=== PATIENT | female | born 1980 | race African-American/Black ===

== ENCOUNTER 2024-06-17 10:00 | Emergency (ER) | payer MEDICAID ==
[~2024-06-17] VITALS: Ht 160 cm; Wt 54.5 kg
[~2024-06-17 10:00] MED LIST: ATIVAN; SEROQUEL
[2024-06-17] MEDS: ONDANSETRON HCL 4 MG/2 ML VIAL IV ONE (10:29)
[2024-06-17] MEDS: SODIUM CHLORIDE 0.9% 1,000 ML IVB ONE (10:49)
[2024-06-17 11:03] LABS: Basophils # (auto) 0 10 ^3/uL (0-0.2); Basophils % (auto) 0.5 % (0.0-2.0); Eosinophils # (auto) 0 10 ^3/uL (0-0.8); Hemoglobin 8.9 g/dL (12.2-16.2); Lymphocytes # (auto) 0.9 10 ^3/uL (0.4-5.4); Lymphocytes % (auto) 17.9 % (10.0-50.0); Mean Corpuscular Hemoglobin 24.5 pg (28.0-32.0); Mean Corpuscular Hgb Conc. 32.9 g/dL (32.0-36.0); Mean Corpuscular Volume 74.2 fL (80.0-100.0); Monocytes # (auto) 0.2 10 ^3/uL (0-1.3); Neutrophils # (auto) 4.1 10 ^3/uL (1.6-8.6); Neutrophils % (auto) 77.6 % (37.0-80.0); Nucleated Red Blood Cells % 0.1 %; Red Blood Cells 3.64 10^6/uL (4.0-5.20); White Blood Cell 5.3 10^3/uL (4.4-10.8)
[2024-06-17 11:04] LABS: Red Cell Distribution Width 20.3 % (11.8-14.3)
[2024-06-17 11:10] VITALS: TEMP 97.3
[2024-06-17] MEDS: MORPHINE SULFATE 4 MG/ML SYR/VIAL IV ONE (11:18)
[2024-06-17] MEDS: PANTOPRAZOLE 40 MG/10 ML VIAL INJ IV ONE (11:18)
[2024-06-17] MEDS: LORazepam 2MG/ML-1ML VIAL IV ONE (11:18)
[2024-06-17 11:20] LABS: Alanine Aminotransferase 10 U/L (7-40); Alkaline Phosphatase 57 U/L (46-116); Anion Gap 11 (5-15); Aspartate Aminotransferase 17 U/L (13-40); BUN/Creatinine Ratio 7.9 (10.0-20.0); Blood Urea Nitrogen 6 mg/dL (9-23); Calcium 8.3 mg/dL (8.7-10.4); Carbon Dioxide 19 mmol/L (20-30); Chloride 111 mmol/L (98-107); Glucose 142 mg/dL (74-106); Potassium 3.4 mmol/L (3.5-5.1); Sodium 141 mmol/L (136-145)
[2024-06-17 11:21] LABS: Albumin 3.9 g/dL (3.2-4.8); Bilirubin, Total 0.3 mg/dL (0.2-1.0)
[2024-06-17 11:24] VITALS: PULSE 78; RESP 22; O2SAT 100
[2024-06-17 11:29] LABS: Lipase 31 U/L (12-53)
[2024-06-17] MEDS ORDERED: ZOFR4T PO (11:47)
[2024-06-17] MEDS ORDERED: PANT40TA2 PO (11:47)
[2024-06-17 12:00] VITALS: BP 133/76; PULSE 84; RESP 17; O2SAT 100
== END 2024-06-17 11:49 | disposition home or self-care (01) ==
LOC: ER 10:00 → EDBD 10:00 → ER 11:49
DX: F12.90 Cannabis use, unspecified, uncomplicated (principal); R10.13 Epigastric pain; R11.2 Nausea with vomiting, unspecified; R19.7 Diarrhea, unspecified; F41.9 Anxiety disorder, unspecified; F15.90 Other stimulant use, unspecified, uncomplicated; Z86.2 Personal history of diseases of the blood and blood-forming organs and certain disorders involving the immune mechanism; Z88.8 Allergy status to other drugs, medicaments and biological substances; Z79.899 Other long term (current) drug therapy
CPT/HCPCS: 36415; 80053; 83690; 85025; 96361; 96374; 96375; 99284; J2060; J2270; J2405; J2470; J7030

== ENCOUNTER 2025-01-02 10:05 | Inpatient (IN) | payer MEDICAID ==
[~2025-01-02] VITALS: Ht 162.6 cm; Wt 49.6 kg
[~2025-01-02 10:05] MED LIST changes: +PANT40TA2 PO; +ZOFR4T PO
--- NOTE | 2025-01-02 11:10 | ED.PDOC ---
GI ASSESSMENT HPI Comments 44 year old female brought in by EMS presents to the ED with a chief complaint of abdominal pain onset today (01/02/2025). Patient states she began experiencing abdominal pain, rates 8/10 as well as nausea, vomiting, headache, sweats. Patient states last time she smoked marihuana was yesterday, 01/01/2025/. PMHx of anemia, anxiety. Denies shortness of breath, chest pain, dizziness, blurry vision, dysuria, hematuria. No other symptoms or modifying factors present at this time. Chief Complaint: Abdominal Pain Time Seen by MD: 10:59 Primary Care Provider: UNKNOWN NAME Allergies: Coded Allergies: Metoclopramide (Verified Allergy, Severe, ANXIETY, 05/03/11) Hydromorphone (Verified Allergy, Mild, 06/12/11) Home Meds Active Scripts Ondansetron Odt 4MG Tab (ZOFRAN PO) 4 Mg Tb, 4 MG PO Q8HP PRN for 5 Days, #15 TAB ODT TAB-DISSOLVE IN MOUTH, THEN SWALLOW Prov:MONICO CASTRO MD 06/17/24 Pantoprazole Sodium Sesquihydr (Protonix) 40 Mg Tab, 40 MG PO DAILY, #30 TAB Prov:MONICO CASTRO MD 06/17/24 Reported Medications [Seroquel] No Conflict Check, HS 05/03/11 [Ativan] No Conflict Check 05/03/11 Information Source: Patient, Emergency Med Personnel Mode of Arrival: EMS Timing: Hours Duration: Since onset Prehospital treatment: None Quality: Burning, Sharp Severity: Moderate Recent: None Recent Hx of: None Pain Location: Diffuse Modifying Factors: Nothing Associated sign and symptoms: Nausea, Vomiting, Abdominal Pain Past Medical History PAST MEDICAL HISTORY: Anemia, Anxiety Surgical History: Denies all surgeries INFORMATION SYSTEMS PROJECT MANAGER History: Denies all INFORMATION SYSTEMS PROJECT MANAGER Hx Family History Family History: Reviewed,noncontributory to illness, No family hx of DM, No family hx of Heart coy, No family hx of HTN, No family hx of Stroke Social History Smoker: Non-Smoker Alcohol: Denies ETOH Use Drugs: Marijuana Lives In: Home Constitutional: reports: sweats; denies: chills, diaphoresis, fatigue, fever, malaise, weakness, others EENTM: denies: blurred vision, double vision, ear bleeding, ear discharge, ear drainage, ear pain, ear ringing, eye pain, eye redness, hearing loss, mouth pain, mouth swelling, nasal discharge, nose bleeding, nose congestion, nose pain, photophobia, tearing, throat pain, throat swelling, voice changes, others Respiratory: denies: cough, hemoptysis, orthopnea, SOB at rest, shortness of breath, SOB with excertion, stridor, wheezing, others Cardiovascular: denies: chest pain, dizzy spells, diaphoresis, Dyspnea on exertion, edema, irregular heart beat, left arm pain, lightheadedness, palpitations, PND, syncope, others Gastrointestinal: reports: abdominal pain, nausea, vomiting; denies: abdomen distended, blood streaked bowels, constipated, diarrhea, dysphagia, difficulty swallowing, hematemesis, melena, poor appetite, poor fluid intake, rectal bleeding, rectal pain, others Genitourinary: denies: abnormal vagina bleeding, burning, dyspareunia, dysuria, flank pain, frequency, hematuria, incontinence, pain, , vagina discharge, urgency, others Neurological: reports: headache; denies: dizziness, fainting, left sided numbness, left sided weakness, numbness, paresthesia, pre-existing deficit, right sided numbness, right sided weakness, seizure, speech problems, tingling, tremors, weakness, others Musculoskeletal: denies: back pain, gout, joint pain, joint swelling, muscle pain, muscle stiffness, neck pain, others Integumetry: denies: bruises, change in color, change in hair/nails, dryness, laceration, lesions, lumps, rash, wounds, others Allergic/Immunocompromised: denies: Difficulty Healing, Frequent Infections, Hives, Itching, others Endocrine: denies: excessive hunger, excessive sweating, excessive thirst, excessive urination, flushing, intolerance to cold, intolerance to heat, unexplained weight gain, unexplained weight loss, others Psychiatric: denies: anxiety, bipolar disorder, depression, hopeless, panic disorder, schizophrenia, sleepless, suicidal, others All Other Systems: Reviewed and Negative Physical Exam General Appearance: Moderate Distress, Normal, Other (Restless anxious with the nausea vomiting and abdominal pain) HEENT: Normal ENT Inspection, PERRL/EOMI, Pharynx Normal, TMs Normal Neck: Full Range of Motion, Non-Tender, Normal, Normal Inspection Respiratory: Chest Non-Tender, Lungs Clear, No Accessory Muscle Use, No Respiratory Distress, Normal Breath Sounds Cardiovascular: No Edema, No JVD, No Murmur, No Gallop, Normal Peripheral Pulses, Regular Rate/Rhythm Breast Exam: Deferred Gastrointestinal: Diffuse, No Organomegaly, No Pulsatile Mass, Normal Bowel Sounds, Soft, Tenderness Genitalia: Deferred Pelvic: Deferred Rectal: Deferred Extremities: No calf tenderness, Normal capillary refill, Normal inspection, Normal range of motion, Non-tender, No pedal edema Musculoskeletal : Apperance: Normal Neurologic: Alert, performance test consultant II-XII nml as Tested, No Motor Deficits, Normal Affect, Normal Mood, No Sensory Deficits Cerebellar Function: Normal Reflexes: Normal Skin: Dry, Normal Color, Warm Peripheral Pulses: 1+ carotid (R), 1+ carotid (L) Lymphatic: No Adenopathy Was a procedure done? Was a procedure done?: No GI differential Dx Differential Diagnosis: Gastritis/PUD, Gastroenteritis, Inflammatory BD, Pancreatitis, UTI, Dehydration, Diabetes/ DKA, Drug toxicity, Electrolyte Imbalance, Food Poisoning, , Hypovolemia, Renal Failure, Anemia X-Ray, Labs, Meds, VS Vital Signs Date Time Temp Pulse Resp B/P (MAP) Pulse Ox O2 Delivery O2 Flow Rate FiO2 01/02/25 12:13 78 20 156/88 (110) 100 01/02/25 12:11 130/80 01/02/25 11:35 80 18 130/80 01/02/25 11:18 130/80 01/02/25 11:17 88 18 130/90 01/02/25 11:12 97.6 76 16 169/86 (113) 100 97.6 01/02/25 10:11 97.6 84 22 183/146 (158) 98 Lab Test 01/02/25 13:22 01/02/25 11:05 Range/Units White Blood Count 6.3 4.4-10.8 10^3/uL Red Blood Count 3.86 L 4.0-5.20 10^6/uL Hemoglobin 8.0 L 12.2-16.2 g/dL Hematocrit 25.9 L 36.0-46.0 % Mean Corpuscular Volume 67.1 L 80.0-100.0 fL Mean Corpuscular Hemoglobin 20.8 L 28.0-32.0 pg Mean Corpuscular Hemoglobin Concent 31.0 L 32.0-36.0 g/dL Red Cell Distribution Width 18.2 H 11.8-14.3 % Platelet Count 285 140-450 10^3/uL Mean Platelet Volume 7.6 6.9-10.8 fL Neutrophils (%) (Auto) 37.0-80.0 % Lymphocytes (%) (Auto) 10.0-50.0 % Monocytes (%) (Auto) 0.0-12.0 % Basophils (%) (Auto) 0.0-2.0 % Neutrophils # (Auto) 1.6-8.6 10 ^3/uL Lymphocytes # (Auto) 0.4-5.4 10 ^3/uL Monocytes # (Auto) 0-1.3 10 ^3/uL Differential Total Cells Counted 100.0 100 Neutrophils % (Manual) 77 37.0-80.0 Band Neutrophils % (Manual) 0 Lymphocytes % (Manual) 20 10.0-50.0 Monocytes % (Manual) 3 0-12 Eosinophils % (Manual) 0 0-7 Basophils % (Manual) 0 0.0-2.0 Metamyelocytes % (manual) 0 Myelocytes % (Manual) 0 Promyelocytes % (Manual) 0 Blast Cells % (Manual) 0 Reactive Lymphocytes 0 Platelet Estimate Adequate Hypochromasia (manual) Moderate Anisocytosis (manual) Slight Microcytosis Moderate Sickle Cells Target Cells Few Ovalocytes Few Carmen Cells Few Sodium Level 139 136-145 mmol/L Potassium Level 4.0 3.5-5.1 mmol/L Chloride Level 110 H 98-107 mmol/L Carbon Dioxide Level 21 20-31 mmol/L Anion Gap 8 5-15 Blood Urea Nitrogen 6 L 9-23 mg/dL Creatinine 0.63 0.550-1.02 mg/dL Glomerular Filtration Rate Calc 112 >90 mL/min BUN/Creatinine Ratio 9.5 L 10.0-20.0 Serum Glucose 122 H 74-106 mg/dL Calcium Level 9.3 8.7-10.4 mg/dL Magnesium Level 1.7 1.6-2.6 mg/dL Lipase 30 12-53 U/L Beta HCG, Quantitative < 1.5 L 1.5-4.2 mIU/mL Urine Color Straw Yellow Urine Clarity Cloudy Clear Urine pH 7.5 5.0-9.0 Urine Specific [place] 1.019 1.001-1.035 Urine Protein Negative Negative Urine Ketones Negative Negative Urine Blood Negative Negative /uL Urine Nitrite Negative Negative Urine Bilirubin Negative Negative Urine Urobilinogen Normal Negative mg/dL Urine Leukocyte Esterase Negative Negative /uL Urine RBC 1 0 - 4 /hpf Urine Microscopic WBC 2 0-5 /HPF Urine Squamous Epithelial Cells Few <5 /hpf Urine Bacteria Few H None Seen /hpf Urine Mucus Few None Seen Urine Glucose Normal Normal mg/dL Current Medications Medications (Trade) Dose Ordered Sig/Roger Route Start Time Stop Time Status Last Admin Ondansetron HCl (Zofran) 8 mg ONCE ONCE IV 01/02/25 11:15 01/02/25 11:16 DC 01/02/25 11:16 Sodium Chloride 1,000 ml @ 1,000 mls/hr Q1H ONCE IVB 01/02/25 11:15 01/02/25 12:14 DC 01/02/25 11:18 Morphine Sulfate 2 mg ONCE ONCE IV 01/02/25 11:15 01/02/25 11:16 DC 01/02/25 11:17 Clonidine HCl (Catapres Tablet) 0.2 mg ONCE ONCE PO 01/02/25 11:15 01/02/25 11:16 DC 01/02/25 11:18 Al Hydrox/Mg Hydrox/Simethicone (Maalox Plus) 30 ml ONCE ONCE PO 01/02/25 11:30 01/02/25 11:31 DC 01/02/25 11:31 Belladonna Alkaloids/ Phenobarbital ( Elixir) 5 ml ONCE ONCE PO 01/02/25 11:30 01/02/25 11:31 DC 01/02/25 11:31 Lidocaine HCl (Xylocaine 2% Viscous) 15 ml ONCE ONCE PO 01/02/25 11:30 01/02/25 11:31 DC 01/02/25 11:31 Ondansetron HCl (Zofran) 4 mg ONCE ONCE IV 01/02/25 13:30 01/02/25 13:31 DC 01/02/25 13:56 X-Ray, Labs, Meds, VS Comment course in the emergency department eventful patient came in complaining of severe abdominal pain nausea vomiting and some headache but mostly the abdomen is painful and she has restless blood pressure also is 183/146 CBC 6300 with 77% neutrophils H&H 8.0 and 259 with microcytosis Urine negative BNP negative Magnesium 1.7 Lipase 30 and beta hCG less than 1.5 Patient has been hydrated and medicated re-evaluation patient is not feeling well and will be admitted for further care Time of 1ST Reevaluation: 11:29 Reevaluation 1ST: Unchanged Patient Education/Counseling: Diagnosis, Treatment, Prognosis Family Education/Counseling: No Family Present Additional Information - The following tests were ordered, and results were reviewed by me: CBC, BETA HCG, LIPASE, UA, MAGNESIUM, BMP, EKG - Additional information was gathered from interviewing the following independent Historian: EMS - I discussed treatments and results with medical personnel and: patient Departure 1 Departure Time of Disposition: 15:27 Impression: Primary Impression: Cannabinoid hyperemesis syndrome Additional Impressions: Cyclic vomiting syndrome Uncontrolled hypertension Epigastric pain Microcytic hypochromic anemia Disposition: ADMITTED INPATIENT Admit to: [facility] Condition: Fair Critical Care Note Critical Care Time?: No Stability Stability form required: Yes Unstable for transfer: Telemetry monitoring, Requires medication (Requires Med for stabilization) Heart Score Heart Score: Heart Score Response (Comments) Value History N/A 0 EKG N/A 0 Age <45 0 Risk Factors 1 or 2 risk factors 1 Troponin Normal limit 0 Total 1 I personally scribed for BIJU GARZA MD ([email or web address]) on 01/02/25 at 11:10. Electronically submitted by Tamara Cuellar ([email or web address]). I personally scribed for BIJU GARZA MD ([email or web address]) on 01/02/25 at 11:17. Electronically submitted by Tamara Cuellar ([email or web address]). BIJU GARZA MD Jan 02, 2025 11:10
[2025-01-02] MEDS: ONDANSETRON HCL 4 MG/2 ML VIAL IV ONE ×2 (11:16→13:56)
[2025-01-02] MEDS: MORPHINE SULFATE 4 MG/ML SYR/VIAL IV ONE (11:17)
[2025-01-02] MEDS: SODIUM CHLORIDE 0.9% 1,000 ML IVB ONE ×2 (11:18→15:47)
[2025-01-02] MEDS: cloNIDine HCL 0.1 MG TAB PO ONE (11:18)
[2025-01-02] MEDS: LIDOCAINE VISCOUS 2% 15ML UD PO ONE (11:31)
[2025-01-02] MEDS: DONNATAL 5ml ORAL Elix (BELLADONNA ALK-PHENOBARB) PO ONE (11:31)
[2025-01-02] MEDS: MAALOX PLUS or MAALOX 30 ML PO ONE (11:31)
[2025-01-02 13:21] LABS: Urine Bacteria FEW /hpf (None Seen); Urine Blood Negative /uL (Negative); Urine Mucus FEW (None Seen); Urine Protein, UAD Negative (Negative); Urine Specific Gravity 1.019 (1.001-1.035); Urine Squamous Epithelial Cell FEW /hpf (<5); Urine Urobilinogen Normal (Negative); Urine WBC 2 /HPF (0-5); Urine pH 7.5 (5.0-9.0)
[2025-01-02 13:24] LABS: Urine Clarity CLOUDY (Clear); Urine Color Straw (Yellow)
[2025-01-02 13:51] LABS: Hematocrit 25.9 % (36.0-46.0); Mean Corpuscular Hemoglobin 20.8 pg (28.0-32.0); Mean Corpuscular Volume 67.1 fL (80.0-100.0); Platelet Count (auto) 285 10^3/uL (140-450); Red Blood Cells 3.86 10^6/uL (4.0-5.20); Red Cell Distribution Width 18.2 % (11.8-14.3); White Blood Cell 6.3 10^3/uL (4.4-10.8)
[2025-01-02 13:56] LABS: Band Neutrophils % (manual) 0; Basophils % (manual) 0 (0.0-2.0); Blast Cells 0; Eosinophils % (manual) 0 (0-7); Metamyelocytes % 0; Myelocytes % 0; Promyelocytes % 0; Reactive Lymphocytes 0
[2025-01-02 14:09] LABS: Sodium 139 mmol/L (136-145)
[2025-01-02 14:10] LABS: Anion Gap 8 (5-15); Calcium 9.3 mg/dL (8.7-10.4); Carbon Dioxide 21 mmol/L (20-31); Chloride 110 mmol/L (98-107)
[2025-01-02 14:14] LABS: Lymphocytes % (manual) 20 (10.0-50.0); Monocytes % (manual) 3 (0-12)
[2025-01-02 14:15] LABS: Anisocytosis Slight; BUN/Creatinine Ratio 9.5 (10.0-20.0); Lipase 30 U/L (12-53); Ovalocytes FEW
[2025-01-02 14:16] LABS: Hypochromia Moderate; Magnesium 1.7 mg/dL (1.6-2.6); Platelet Estimate Adequate; Target Cell FEW
[2025-01-02 14:17] LABS: Blood Urea Nitrogen 6 mg/dL (9-23); Glucose 122 mg/dL (74-106)
[2025-01-02] MEDS: MORPHINE SULFATE INJ 2 MG/ml SYRG IV ONE (15:48)
[2025-01-02 16:34] VITALS: PULSE 77; RESP 16; O2SAT 100
[2025-01-02] MEDS ORDERED: ACETAMINOPHEN 325 MG TAB PO PRN (16:45)
--- NOTE | 2025-01-02 16:54 | DVHHP2 ---
History of Present Illness Reason for Visit: Abdominal pain rule out food poisoning History of Present Illness This is a 44-year-old female with history of anemia and anxiety presents to ED with chief complaint of abdominal pain associated with nausea, diarrhea and vomiting times several days progressively worse this morning. Upon evaluation, patient reports eating at a restaurant in [facility] a few days ago when symptoms started to occur. The patient denied recent travel, changes in diet and eating anything different from the ordinary. The patient is evaluated and treated. The patient will be admitted under hospitalist care to the medical- surgical unit. The patient denies fever, chills, headache, dizziness, palpitation, chest pain, constipation and other associated symptoms. The plan has been discussed with the patient and primary RN in which all questions concerns have been addressed. Heme/Onc: Anemia NOS Psych: Anxiety Past Surgical History: None Family History: None Smoke: No ALCOHOL: none Drugs: Marijuana Lives: with Family Domestic Violence: Neg Review of Systems Gastrointestinal: Nausea, Vomiting, Abdominal Pain, Diarrhea Allergies: Coded Allergies: Metoclopramide (Verified Allergy, Severe, ANXIETY, 05/03/11) Hydromorphone (Verified Allergy, Mild, 06/12/11) Medications Current Medications Medications Dose Ordered Sig/Roger Route Start Time Stop Time Status Last Admin Dose Admin Sodium Chloride 1,000 ml @ 120 mls/hr Q8H20M IV 01/02/25 16:45 UNV Ondansetron HCl 4 mg Q4HP PRN IV 01/02/25 16:45 UNV Enoxaparin Sodium 40 mg DAILY SC 01/03/25 10:00 UNV Acetaminophen 650 mg Q6HP PRN PO 01/02/25 16:45 UNV Pantoprazole Sodium 40 mg DAILY IV 01/03/25 10:00 UNV Dicyclomine HCl 20 mg TIDPRN PRN PO 01/02/25 16:45 UNV Exam Vital Signs Vital Signs Date Time Temp Pulse Resp B/P (MAP) Pulse Ox O2 Delivery O2 Flow Rate FiO2 01/02/25 16:38 60 01/02/25 16:34 16 100 Room Air* 0 21 01/02/25 16:34 97.6 170/97 (121) 97.6 General Appearance: Alert, Oriented X3, Cooperative, mild distress HEENT: Atraumatic, PERRLA, Mucous membr. moist/pink Respiratory: Clear to auscultation, Normal air movement Cardiovascular: Normal S1, Normal S2, No murmurs Abdominal: Normal bowel sounds, Soft, No hepatospenomegaly, No masses Extremities: No clubbing, No cyanosis, No edema, Normal pulses, No tenderness/swelling Skin: No rashes, No breakdown Neuro: Normal gait, Normal speech, Strength at 5/5 X4 ext, Normal tone, Sensati on intact, Cranial nerves 3-12 NL, Reflexes 2+ Psych/Mental Status: Mental status NL Labs/Xrays Labs Test 01/02/25 13:22 01/02/25 11:05 Range/Units White Blood Count 6.3 4.4-10.8 10^3/uL Red Blood Count 3.86 L 4.0-5.20 10^6/uL Hemoglobin 8.0 L 12.2-16.2 g/dL Hematocrit 25.9 L 36.0-46.0 % Mean Corpuscular Volume 67.1 L 80.0-100.0 fL Mean Corpuscular Hemoglobin 20.8 L 28.0-32.0 pg Mean Corpuscular Hemoglobin Concent 31.0 L 32.0-36.0 g/dL Red Cell Distribution Width 18.2 H 11.8-14.3 % Platelet Count 285 140-450 10^3/uL Mean Platelet Volume 7.6 6.9-10.8 fL Neutrophils (%) (Auto) 37.0-80.0 % Lymphocytes (%) (Auto) 10.0-50.0 % Monocytes (%) (Auto) 0.0-12.0 % Basophils (%) (Auto) 0.0-2.0 % Neutrophils # (Auto) 1.6-8.6 10 ^3/uL Lymphocytes # (Auto) 0.4-5.4 10 ^3/uL Monocytes # (Auto) 0-1.3 10 ^3/uL Differential Total Cells Counted 100.0 100 Neutrophils % (Manual) 77 37.0-80.0 Band Neutrophils % (Manual) 0 Lymphocytes % (Manual) 20 10.0-50.0 Monocytes % (Manual) 3 0-12 Eosinophils % (Manual) 0 0-7 Basophils % (Manual) 0 0.0-2.0 Metamyelocytes % (manual) 0 Myelocytes % (Manual) 0 Promyelocytes % (Manual) 0 Blast Cells % (Manual) 0 Reactive Lymphocytes 0 Platelet Estimate Adequate Hypochromasia (manual) Moderate Anisocytosis (manual) Slight Microcytosis Moderate Sickle Cells Target Cells Few Ovalocytes Few Carmen Cells Few Sodium Level 139 136-145 mmol/L Potassium Level 4.0 3.5-5.1 mmol/L Chloride Level 110 H 98-107 mmol/L Carbon Dioxide Level 21 20-31 mmol/L Anion Gap 8 5-15 Blood Urea Nitrogen 6 L 9-23 mg/dL Creatinine 0.63 0.550-1.02 mg/dL Glomerular Filtration Rate Calc 112 >90 mL/min BUN/Creatinine Ratio 9.5 L 10.0-20.0 Serum Glucose 122 H 74-106 mg/dL Calcium Level 9.3 8.7-10.4 mg/dL Magnesium Level 1.7 1.6-2.6 mg/dL Lipase 30 12-53 U/L Beta HCG, Quantitative < 1.5 L 1.5-4.2 mIU/mL Urine Color Straw Yellow Urine Clarity Cloudy Clear Urine pH 7.5 5.0-9.0 Urine Specific [place] 1.019 1.001-1.035 Urine Protein Negative Negative Urine Ketones Negative Negative Urine Blood Negative Negative /uL Urine Nitrite Negative Negative Urine Bilirubin Negative Negative Urine Urobilinogen Normal Negative mg/dL Urine Leukocyte Esterase Negative Negative /uL Urine RBC 1 0 - 4 /hpf Urine Microscopic WBC 2 0-5 /HPF Urine Squamous Epithelial Cells Few <5 /hpf Urine Bacteria Few H None Seen /hpf Urine Mucus Few None Seen Urine Glucose Normal Normal mg/dL Assessment/Plan Assessment/Plan Abdominal pain rule out food poisoning-patient complain of abdominal pain associated with nausea, vomiting and diarrhea times several days progressively worse today Patient states eating at a restaurant in [facility] when symptoms occurred No recent travel, changes in food eaten, new medication and sick contact with family/friends Admit to med surge unit Reviewed CBC hemoglobin 8.0 Reviewed BNP which is normal Lipase is normal Magnesium 1.7 test is negative Urinalysis is negative C diff pending Ova and parasite pending Stool bacterial culture pending IV Zofran as needed for nausea IV hydration IV Toradol x1 now for pain IV Flagyl and ceftriaxone IV Protonix now and daily Bentyl as needed for pain Hypomagnesemia--1.7 Order 2 g Mag sulfate IV piggyback x1 now Continue to monitor and replace as needed Anemia Hemoglobin 8.0 No active bleeding Continue to monitor Reconcile home medication DVT prophylaxis PUD prophylaxis Labs in a.m. Discussed plan of care with the patient in which all questions concerns have been addressed Plan discussed with: Patient My Orders Orders - CHRIS KNIGHT Procedure Category Date Status Time Admit ADMIT 01/02/25 Transmitted 16:31 Sodium Chloride 0.9% PHA 01/02/25 Logged 16:45 Ondansetron Hcl PHA 01/02/25 Logged (Zofran) 16:45 Enoxaparin Sodium PHA 01/03/25 Logged (Lovenox) 10:00 Complete Blood Count LAB 01/03/25 Verified 04:00 Comprehensive LAB 01/03/25 Verified Metabolic Panel 04:00 Condition: Fair SENDY 01/02/25 In Process 16:31 Acetaminophen Tablet PHA 01/02/25 Logged (Tylenol Tablet) 16:45 Clear Liq Diet DIET 01/02/25 Transmitted Dinner Bedrest With Bathroom SENDY 01/02/25 In Process Privileg 16:31 Pantoprazole PHA 01/03/25 Logged (Protonix) 10:00 Pantoprazole PHA 01/02/25 Logged (Protonix) 16:45 Dicyclomine Capsule PHA 01/02/25 Logged (Bentyl Capsule) 16:45 Dicyclomine Capsule PHA 01/02/25 Logged (Bentyl Capsule) 16:45 Ketorolac Injection PHA 01/02/25 Logged (Toradol Injection) 16:45 Metronidazole Ivpb PHA 01/02/25 Transmitted Flagyl 22:00 Metronidazole Ivpb PHA 01/02/25 Transmitted Flagyl 16:45 Ceftriaxone Ivpb PHA 01/03/25 Transmitted Rocephin 09:00 Ceftriaxone Ivpb PHA 01/02/25 Transmitted Rocephin 16:45 Magnesium Eran PHA 01/02/25 Transmitted 16:45 Clostridium Difficile INDIRA 01/02/25 Transmitted Toxin 16:43 Ova & Parasite Exam INDIRA 01/02/25 Transmitted 16:43 Stool Bacterial INDIRA 01/02/25 Transmitted Culture 16:43 Date of Service: Jan 02, 2025 Billing Provider: CHRIS KNIGHT Common Visit Codes: [id number] INP/OBS CARE (HIGH) CHRIS KNIGHT Jan 02, 2025 16:54
[2025-01-02] MEDS: ONDANSETRON HCL 4 MG/2 ML VIAL IV PRN (17:07)
[2025-01-02] MEDS: DICYCLOMINE HCL 10 MG CAP PO ONE (17:07)
[2025-01-02] MEDS: PANTOPRAZOLE 40 MG/10 ML VIAL INJ IV ONE (17:07)
[2025-01-02] MEDS: cefTRIAXone 1GM/50ML D5W 50 ML IV ONE (17:08)
[2025-01-02] MEDS: SODIUM CHLORIDE 0.9% 1,000 ML IV SCH (17:08)
[2025-01-02] MEDS: KETOROLAC TROMETH 30 MG/ML 1ML VIAL IV ONE (17:08)
[2025-01-02] MEDS: metroNIDAZOLE 500MG/100ML 100 ML IV ONE (17:09)
[2025-01-02] MEDS: MAGNESIUM SULFATE 1GM/100ML 100 ML IV SCH (17:09)
[2025-01-02 20:00] VITALS: PULSE 70; RESP 18; O2SAT 100
[2025-01-02 21:00] VITALS: BP 125/72; PULSE 78; RESP 17; TEMP 98.9; O2SAT 100
[2025-01-02] MEDS: DICYCLOMINE HCL 10 MG CAP PO PRN (21:16)
[2025-01-02] MEDS ORDERED: PERCOT PO (22:03)
[2025-01-02] MEDS ORDERED: GABA-339 PO (22:03)
[2025-01-02] MEDS ORDERED: DIA5T PO (22:06)
[2025-01-02] MEDS: traMADol HCL 50 MG TAB PO PRN (23:24)
[2025-01-02] MEDS: metroNIDAZOLE 500MG/100ML 100 ML IV SCH (23:43)
[2025-01-03 01:00] VITALS: BP 110/71; PULSE 89; RESP 17; TEMP 98.6; O2SAT 100
[2025-01-03 05:00] VITALS: BP 127/82; PULSE 86; RESP 17; TEMP 99; O2SAT 98
[2025-01-03 07:22] LABS: Hematocrit 23.3 % (36.0-46.0); Hemoglobin 7.3 g/dL (12.2-16.2); Mean Corpuscular Hemoglobin 20.5 pg (28.0-32.0); Mean Corpuscular Hgb Conc. 31.1 g/dL (32.0-36.0); Platelet Count (auto) 260 10^3/uL (140-450); Red Blood Cells 3.54 10^6/uL (4.0-5.20); Red Cell Distribution Width 18.2 % (11.8-14.3); White Blood Cell 4.6 10^3/uL (4.4-10.8)
[2025-01-03 07:41] LABS: Alanine Aminotransferase 16 U/L (7-40); Alkaline Phosphatase 66 U/L (46-116); Anion Gap 8 (5-15); Aspartate Aminotransferase 17 U/L (13-40); Carbon Dioxide 22 mmol/L (20-31); Glucose 89 mg/dL (74-106); Sodium 138 mmol/L (136-145)
[2025-01-03 07:42] LABS: Calcium 8.9 mg/dL (8.7-10.4)
[2025-01-03 07:46] LABS: Band Neutrophils % (manual) 0; Basophils % (manual) 0 (0.0-2.0); Blast Cells 0; Eosinophils % (manual) 0 (0-7); Metamyelocytes % 0; Myelocytes % 0; Promyelocytes % 0
[2025-01-03 07:58] LABS: BUN/Creatinine Ratio 6.7 (10.0-20.0); Bilirubin, Total 0.3 mg/dL (0.2-1.0); Blood Urea Nitrogen < 5 mg/dL (9-23); Chloride 108 mmol/L (98-107); Potassium 3.2 mmol/L (3.5-5.1)
[2025-01-03] MEDS: PANTOPRAZOLE 40 MG/10 ML VIAL INJ IV SCH (08:47)
[2025-01-03] MEDS: cefTRIAXone 1GM/50ML D5W 50 ML IV SCH (08:47)
[2025-01-03] MEDS: ENOXAPARIN SOD 40 MG/0.4 ML SYRINGE SC SCH (08:48)
[2025-01-03 08:49] VITALS: BP 130/86; PULSE 91; RESP 16; TEMP 98.3; O2SAT 100
[2025-01-03 08:52] LABS: Lymphocytes % (manual) 33 (10.0-50.0); Monocytes % (manual) 3 (0-12); Reactive Lymphocytes 1
[2025-01-03 08:53] LABS: Anisocytosis Slight; Hypochromia Moderate; Ovalocytes FEW; Target Cell FEW
[2025-01-03 08:54] LABS: Platelet Estimate Adequate
[2025-01-03] MEDS ORDERED: PERCOT PO (12:40)
[2025-01-03 13:00] VITALS: BP 141/81; PULSE 78; RESP 18; TEMP 98.4; O2SAT 100
[2025-01-03] MEDS: OXYCODONE W/ ACETAMINOPHEN 5/325MG TABLET PO ONE (13:13)
[2025-01-03] MEDS: POTASSIUM EFFERVESENT TAB 25 MEQ PO ONE (14:22)
[2025-01-03] MEDS ORDERED: ZOFR4T PO (14:48)
[2025-01-03] MEDS ORDERED: DICY10CA PO (14:48)
[2025-01-03] MEDS ORDERED: ACET-1882 PO (14:48)
[2025-01-03] MEDS: POTASSIUM CHL 20MEQ/100ML 100 ML IV SCH (15:16)
[2025-01-03 15:43] VITALS: BP 130/80; TEMP 36.9
[2025-01-03] MEDS: diphenhdrAMINE HCL 25 MG CAP PO ONE (15:52)
[2025-01-03] MEDS ORDERED: POTA99TA5 PO (16:11)
[2025-01-03 17:00] VITALS: BP 153/80; PULSE 89; RESP 18; TEMP 97.4; O2SAT 100
--- NOTE | 2025-01-03 20:10 | DVHDSRES ---
Discharge Summary Date of Admission Resident Creating Document: ABDON RAMIREZ RESIDENT Jan 02, 2025 at 16:31 Date of Discharge: Jan 03, 2025 Labs/Diagnostic Data: Laboratory Results Test 01/03/25 06:15 01/02/25 13:22 01/02/25 11:05 White Blood Count 4.6 10^3/uL (4.4-10.8) Red Blood Count 3.54 10^6/uL (4.0-5.20) Hemoglobin 7.3 g/dL (12.2-16.2) Hematocrit 23.3 % (36.0-46.0) Mean Corpuscular Volume 66.0 fL (80.0-100.0) Mean Corpuscular Hemoglobin 20.5 pg (28.0-32.0) Mean Corpuscular Hemoglobin Concent 31.1 g/dL (32.0-36.0) Red Cell Distribution Width 18.2 % (11.8-14.3) Platelet Count 260 10^3/uL (140-450) Mean Platelet Volume 7.8 fL (6.9-10.8) Neutrophils (%) (Auto) % (37.0-80.0) Lymphocytes (%) (Auto) % (10.0-50.0) Monocytes (%) (Auto) % (0.0-12.0) Basophils (%) (Auto) % (0.0-2.0) Neutrophils # (Auto) 10 ^3/uL (1.6-8.6) Lymphocytes # (Auto) 10 ^3/uL (0.4-5.4) Monocytes # (Auto) 10 ^3/uL (0-1.3) Differential Total Cells Counted 100.0 (100) Neutrophils % (Manual) 63 (37.0-80.0) Band Neutrophils % (Manual) 0 Lymphocytes % (Manual) 33 (10.0-50.0) Monocytes % (Manual) 3 (0-12) Eosinophils % (Manual) 0 (0-7) Basophils % (Manual) 0 (0.0-2.0) Metamyelocytes % (manual) 0 Myelocytes % (Manual) 0 Promyelocytes % (Manual) 0 Blast Cells % (Manual) 0 Reactive Lymphocytes 1 Platelet Estimate Adequate Hypochromasia (manual) Moderate Anisocytosis (manual) Slight Microcytosis Moderate Target Cells Few Ovalocytes Few Carmen Cells Few Sodium Level 138 mmol/L (136-145) Potassium Level 3.2 mmol/L (3.5-5.1) Chloride Level 108 mmol/L (98-107) Carbon Dioxide Level 22 mmol/L (20-31) Anion Gap 8 (5-15) Blood Urea Nitrogen < 5 mg/dL (9-23) Creatinine 0.75 mg/dL (0.550-1.02) Glomerular Filtration Rate Calc 101 mL/min (>90) BUN/Creatinine Ratio 6.7 (10.0-20.0) Serum Glucose 89 mg/dL (74-106) Calcium Level 8.9 mg/dL (8.7-10.4) Total Bilirubin 0.3 mg/dL (0.2-1.0) Aspartate Amino Transferase (AST) 17 U/L (13-40) Alanine Aminotransferase (ALT) 16 U/L (7-40) Alkaline Phosphatase 66 U/L (46-116) Total Protein 7.0 g/dL (5.7-8.2) Albumin 4.0 g/dL (3.2-4.8) Sickle Cells Magnesium Level 1.7 mg/dL (1.6-2.6) Lipase 30 U/L (12-53) Beta HCG, Quantitative < 1.5 mIU/mL (1.5-4.2) Urine Color Straw (Yellow) Urine Clarity Cloudy (Clear) Urine pH 7.5 (5.0-9.0) Urine Specific [place] 1.019 (1.001-1.035) Urine Protein Negative (Negative) Urine Ketones Negative (Negative) Urine Blood Negative /uL (Negative) Urine Nitrite Negative (Negative) Urine Bilirubin Negative (Negative) Urine Urobilinogen Normal mg/dL (Negative) Urine Leukocyte Esterase Negative /uL (Negative) Urine RBC 1 /hpf (0 - 4) Urine Microscopic WBC 2 /HPF (0-5) Urine Squamous Epithelial Cells Few /hpf (<5) Urine Bacteria Few /hpf (None Seen) Urine Mucus Few (None Seen) Urine Glucose Normal mg/dL (Normal) Other Laboratory Tests 01/03/25 06:15 Brief Hx & Hospital Course: Megan Hobson is a 44-year-old female patient who presents to ED with chief complaint of abdominal pain associated with nausea, diarrhea and vomiting times several days progressively worse this morning. Patient reports symptoms started after eating in a fast food restaurant. Denies palpitation, syncope, chest pain, dyspnea, constipation, recent travel, sick contacts and motor or sensory deficits. Past medical history: Anemia on iron pills, anxiety, brain tumor status post resection requiring Percocet for headaches Surgical history: Brain tumor resection Family history: Noncontributory Social history: Lives with family. Consumes marijuana. Denies current tobacco, alcohol and other drug abuse Allergies: Hydromorphone, metoclopramide Home medication: Percocet Brief hospital course: Food intoxication associated with electrolyte disturbances (hypomagnesemia and hypokalemia) symptomatic by abdominal pain, nausea, vomiting and diarrhea, responding to IV fluids, IV Zofran, electrolyte replenishment and empiric IV antibiotic (ceftriaxone and metronidazole). Patient tolerating p.o. diet (soft mechanical), did not present any new episodes of vomiting. Patient hemodynamically stable, asymptomatic, tolerating soft mechanical diet, in condition to be discharged home. Was granted under optimal medical therapy (Zofran and p.o. potassium), gave advice on healthy lifestyle habits and follow- up with PCP. DIAGNOSIS Food intoxication symptomatic by abdominal pain, nausea, vomiting and diarrhea Chronic microcytic hypochromic anemia with iron deficiency Hypokalemia Hypomagnesemia Hyperchloremia secondary to vomiting History of brain tumor status post resection Physical examination Patient lying in bed, in no acute distress General: Lucid, afebrile, mucosae are moist Cardiovascular: Normal S1 and S2. No murmurs, gallops or rubs Respiratory: Normal ventilation mechanics. Clear lung sounds on auscultation Abdomen: Soft, nontender, no organomegaly, normal bowel sounds MSK/skin: Mobilizes 4 limbs. Skin is dry and warm Neurological: Oriented in 3 spheres. No motor no sensitive deficits. Pupils are isocoric and reactive Goals of care discussed with patient for over 18 minutes: Full code status Discussed plan with Dr. Hayes, patient and nurses. Condition at Discharge: Good Final Diagnosis/Problems List Food intoxication symptomatic by abdominal pain, nausea, vomiting and diarrhea Chronic microcytic hypochromic anemia with iron deficiency Hypokalemia Hypomagnesemia Hyperchloremia secondary to vomiting History of brain tumor status post resection Discharge Disposition: Home SNF Discharge Will this Physician continue t: No Discharge Instruct/Medications Diet: Regular Activity: No Restrictions, As Tolerated Follow Up/Referral: PCP Medications: PO Potassium for 5 days Ana Discharge Statement: "Patient was advised to return to the ER or call 911 if any headaches, dizziness, shortness of breath, chest pain, abdominal pain, bleeding, fevers, or worsening of medical condition. Patient was counseled about treatment plan, medications, possible side effects, patientverbalized understanding. All questions were answered to the best of my ability. This discharge took greater then 30 minutes in planning, reviewing documentation, counseling the patient, and discussing with other team members." ASSESSMENT ASSESSMENT Assessment Food intoxication ABDON RAMIREZ RESIDENT Jan 03, 2025 20:10
[2025-01-04 11:42] LABS: Hepatitis B Surface Antigen Negative (Negative); Hepatitis C Antibody Negative (Negative)
== END 2025-01-03 17:18 | disposition home or self-care (01) | DRG 249 ==
LOC: ER 10:05 → EDBD 10:05 → OVERFLOW 16:31 → WEST WING 18:55
PROVIDERS: ADMIT Hospitalist; ATTEND Emergency Medicine
DX: A05.9 Bacterial foodborne intoxication, unspecified (principal); E87.8 Other disorders of electrolyte and fluid balance, not elsewhere classified; D50.9 Iron deficiency anemia, unspecified; E83.42 Hypomagnesemia; F12.90 Cannabis use, unspecified, uncomplicated; E87.6 Hypokalemia; F41.9 Anxiety disorder, unspecified; I10 Essential (primary) hypertension; Z88.5 Allergy status to narcotic agent; Z79.899 Other long term (current) drug therapy; Z88.8 Allergy status to other drugs, medicaments and biological substances
CPT/HCPCS: 36415; 80048; 80053; 81001; 83690; 83735; 84702; 85007; 85027; 86803; 87045; 87340; 87427; 87493; 96365; 96368; 96375; 96376; G0378; J1885; J2405; J2470; J3480; J3490